=== PATIENT | male | born 1960 | race Caucasian/White ===

== ENCOUNTER 2017-12-07 10:55 | Emergency (ER) | payer SELFPAY ==
[~2017-12-07] VITALS: Ht 182.9 cm; Wt 104.3 kg
--- NOTE | 2017-12-07 11:41 | Diagnostic Imaging Report ---
RIGHT FOOT X-RAY - 3 VIEWS HISTORY: Trauma COMPARISON: None available. FINDINGS: Bones: Acute minimally displaced comminuted fracture of the midshaft of the right fifth metatarsal. No intra-articular extension. Osseous alignment is within normal limits. Joints: The joint spaces are well-maintained. Soft tissues: Soft tissue swelling adjacent to the fifth metatarsal. IMPRESSION: Acute comminuted minimally displaced fracture of the right fifth metatarsal. Recommend orthopedic consultation and follow-up x-ray in 2-3 weeks. Signed by: Dr. Ann Marie Lam M.D. on 12/07/2017 11:38 AM
[2017-12-07] MEDS ORDERED: ULTRAM50 MG PO (11:56)
[2017-12-07 12:29] VITALS: BP 132/65
== END 2017-12-07 12:25 | disposition home or self-care (01) ==
LOC: FSED 10:55
DX: S92.341A Displaced fracture of fourth metatarsal bone, right foot, initial encounter for closed fracture (principal); W18.39XA Other fall on same level, initial encounter; Y92.008 Other place in unspecified non-institutional (private) residence as the place of occurrence of the external cause
CPT/HCPCS: 99283